=== PATIENT | female | born 1965 | race Caucasian/White ===

== ENCOUNTER → 2019-06-19 15:12 | Outpatient (CLI) | payer OTHER, SELFPAY ==
--- NOTE | 2019-06-19 | DI.MG.S_ITS ---
BILATERAL DIGITAL SCREENING MAMMOGRAM 3D/2D WITH CAD: 06/19/2019 CLINICAL: Routine screening. Comparison is made to exams dated: 05/13/2017 mammogram, 08/12/2015 mammogram, and 07/03/2014 mammogram - [facility]. The tissue of both breasts is heterogeneously dense. This may lower the sensitivity of mammography. Current study was also evaluated with a Computer Aided Detection (CAD) system. There is a mole marker on the left breast. No significant masses, calcifications, or other findings are seen in either breast. There has been no significant interval change. IMPRESSION: NEGATIVE There is no mammographic evidence of malignancy. A 1 year screening mammogram is recommended. This exam was interpreted at Station ID: [id number]. NOTE: For mammograms, a report in lay terms will be sent to the patient. Approximately 15% of breast malignancies will not be visualized mammographically. In the management of a palpable breast mass, a negative mammogram must not discourage biopsy of a clinically suspicious lesion. Electronically Signed By: David rowell/roberto:06/19/2019 18:49:54 letter sent: Normal Exam ACR BI-RADS Category 1: Negative 3341F
== END ==
PROVIDERS: PCP Family Medicine; Visit Provider Family Medicine
DX: Z12.31 Encounter for screening mammogram for malignant neoplasm of breast (principal)
CPT/HCPCS: 77063; 77067

== ENCOUNTER → 2019-07-04 11:43 | Outpatient (CLI) | payer OTHER, SELFPAY ==
[2019-07-04 12:33] LABS: Cholesterol 203 mg/dL (140-199); Glucose 96 mg/dL (70-100); HDL Cholesterol 49 mg/dL (40-60); LDL Cholesterol Calculated 142 mg/dL (<100); Triglycerides 58 mg/dL (35-150)
== END ==
PROVIDERS: PCP Family Medicine; Visit Provider Family Medicine
DX: Z13.220 Encounter for screening for lipoid disorders (principal); Z13.1 Encounter for screening for diabetes mellitus
CPT/HCPCS: 36415; 80061; 82947

== ENCOUNTER → 2022-04-28 11:05 | Outpatient (CLI) | payer OTHER, SELFPAY ==
[2022-04-28 14:53] LABS: Cholesterol 196 mg/dL (140-199); Glucose 103 mg/dL (70-100); HDL Cholesterol 56 mg/dL (40-60); LDL Cholesterol Calculated 128 mg/dL (<100); Triglycerides 60 mg/dL (35-150)
[2022-04-28 15:24] LABS: TSH w/ Reflex to FT4 2.74 uIU/mL (0.47-4.68)
== END ==
PROVIDERS: PCP Family Medicine; Referring Provider Family Medicine; Visit Provider Family Medicine
DX: E78.5 Hyperlipidemia, unspecified (principal); Z13.1 Encounter for screening for diabetes mellitus; Z13.29 Encounter for screening for other suspected endocrine disorder
CPT/HCPCS: 36415; 80061; 82947; 84443

== ENCOUNTER → 2022-05-25 09:33 | Outpatient (CLI) | payer OTHER, SELFPAY ==
--- NOTE | 2022-05-25 09:34 | DI.MG.S_ITS ---
BILATERAL DIGITAL SCREENING MAMMOGRAM 3D/2D WITH CAD: 05/25/2022 CLINICAL: Routine screening. Comparison is made to exams dated: 06/19/2019 mammogram, 05/13/2017 mammogram, and 08/12/2015 mammogram - [facility]. Both breasts are heterogeneously dense, which may obscure small masses (category c / 51-75% glandular tissue). Current study was also evaluated with a Computer Aided Detection (CAD) system. There is a mole marker on the left breast. No significant masses, calcifications, or other findings are seen in either breast. There has been no significant interval change. IMPRESSION: NEGATIVE There is no mammographic evidence of malignancy. A 1 year screening mammogram is recommended. Based on the Tyrer Cuzick model (a risk assessment model) the patient's lifetime risk is 11.9% and her 10 year risk is 4.2%. According to the ACR, ACS, and NCCN guidelines, an annual breast MRI exam along with mammogram is recommended if the patient's lifetime risk is 20% or greater. This exam was interpreted at Station ID: [id number]. NOTE: For mammograms, a report in lay terms will be sent to the patient. Approximately 15% of breast malignancies will not be visualized mammographically. In the management of a palpable breast mass, a negative mammogram must not discourage biopsy of a clinically suspicious lesion. Electronically Signed By: Hernan Coello M.D., jr/roberto:05/25/2022 09:49:22 letter sent: Normal Exam ACR BI-RADS Category 1: Negative 3341F
== END ==
PROVIDERS: PCP Family Medicine; Referring Provider Family Medicine; Visit Provider Family Medicine
DX: Z12.31 Encounter for screening mammogram for malignant neoplasm of breast (principal)
CPT/HCPCS: 77063; 77067

== ENCOUNTER → 2023-04-20 10:31 | Outpatient (CLI) | payer OTHER, SELFPAY ==
[2023-04-20 11:00] LABS: Add Manual Diff / Slide Review NO; Basophils Absolute Auto 100 /uL (0-100); Basophils Percent Auto 1.4 % (0-2); Eosinophils Absolute Auto 100 /uL (0-450); Eosinophils Percent Auto 1.4 % (2-4); Hematocrit 37.8 % (36-46); Hemoglobin 12.8 g/dL (12.0-16.0); Lymphocytes Absolute Auto 1200 /uL (1100-4500); Lymphocytes Percent Auto 25.9 % (25-40); Mean Corpuscular Hemoglobin 32.8 PG (26-34); Mean Corpuscular Volume 96.5 fL (80-100); Monocytes Absolute Auto 300 /uL (0-900); Monocytes Percent Auto 7.6 % (3-14); Neutrophils Absolute Auto 2800 /uL (1500-7000); Neutrophils Percent Auto 63.7 % (50-75); Platelet Count 183 X10^3/uL (150-400); Red Blood Cell Count 3.91 X10^6/uL (4.0-5.2); Red Cell Distribution Width 12.9 % (11.6-14.8); White Blood Cell Count 4.4 X10^3/uL (4.5-11.0)
[2023-04-20 11:22] LABS: Alanine Aminotransferase 14 IU/L (<35); Albumin 3.8 g/dL (3.5-5.0); Albumin Globulin Ratio 1.4 (1.0-2.8); Alkaline Phosphatase 56 U/L (38-126); Aspartate Aminotransferase 19 IU/L (14-36); BUN Creatinine Ratio 18.8 (6-22); Bilirubin Total 0.6 mg/dL (0.2-1.3); Blood Urea Nitrogen 15 mg/dL (7-17); Calcium 8.7 mg/dL (8.4-10.2); Carbon Dioxide 25 mmol/L (22-32); Chloride 105 mmol/L (98-107); Estimated Glomerular Filt Rate > 60 mL/min (>60); Globulin 2.7 g/dL (1.7-4.1); Glucose 105 mg/dL (70-100); HEMOLYSIS < 15 (0-50); Potassium 4.3 mmol/L (3.4-5.1); Sodium 137 mmol/L (137-145); Total Protein 6.5 g/dL (6.3-8.2)
[2023-04-20 12:00] LABS: Cholesterol 192 mg/dL (140-199); HDL Cholesterol 59 mg/dL (40-60); LDL Cholesterol Calculated 122 mg/dL (<100); Triglycerides 53 mg/dL (35-150)
[2023-04-21 04:24] LABS: x Labcorp Estim. Avg Glu (eAG) 111 mg/dL (.); x Labcorp Hemoglobin A1c 5.5 % (4.8-5.6)
== END ==
PROVIDERS: PCP Family Medicine; Referring Provider Family Medicine; Visit Provider Family Medicine
DX: Z13.9 Encounter for screening, unspecified (principal); Z13.220 Encounter for screening for lipoid disorders
CPT/HCPCS: 36415; 80053; 80061; 83036; 85025

== ENCOUNTER 2023-08-17 07:11 | Day surgery (SDC) | payer OTHER, SELFPAY ==
--- NOTE | 2023-08-17 | PATH_ITS ---
[facility] Accession Number: [id number] No. of containers..02 Tissue . 01 Material submitted: . PART A: rectum - RECTAL POLYP PART B: colon - DESCENDING COLON POLYP X3 . 01 Diagnosis: A. Rectum, Polyp: Tubulovillous adenoma. No evidence of malignancy or high-grade dysplasia. . B. Descending Colon, Polyp x3: Multiple fragments of tubular adenoma. [facility] 08/26/2023 1339 Local . 01 Electronically signed: . Anna Oneill MD, Pathologist NPI- [id number] . 01 Gross description: . Part A: RECTAL POLYP: Received in formalin is multiple fragment(s) of fallon, soft tissue measuring 3.0 x 2.0 x 0.4 cm in aggregate submitted entirely in 1 cassette(s) Part B: DESCENDING COLON POLYP X3: Received in formalin is multiple fragment(s) of fallon, soft tissue measuring 1.5 x 0.7 x 0.3 cm in aggregate submitted entirely in 1 cassette(s) /AA 08/18/2023 0446 Local . 01 Pathologist provided ICD-10: D12.8, D12.4 . 01 CPT . 392041, 726861 Specimen Comment: A courtesy copy of this report has been sent to [phone] Performed at: 01 [facility] [address] [place] [address], [place], [place] [id number] MD Adan Baig MD Phone: [phone]
[2023-08-17] MEDS: LACTATED RINGERS 1,000 ML 42 ML IV (07:27)
[2023-08-17 07:29] VITALS: BP 140/76; PULSE 75; RESP 16; TEMP 36.1; O2SAT 99; BMI 32.9
--- NOTE | 2023-08-17 08:09 | P.HP_ITS ---
History of Present Illness History of Present Illness Date Patient Seen: 08/17/23 Time Patient Seen: 08:09 Chief complaint: Screening Colonoscopy Narrative: 58-year-old woman here for routine screening colonoscopy. No previous colonoscopy. No abdominal concerns including rectum, unintentional weight loss, abdominal pain. No family history of intestinal malignancy. [facility] Surgical History Status post surgery (12/20/17) Social History household members: spouse Smoking Status: Never smoker alcohol intake: current Meds Home Medications and Allergies Home Medications Medication Instructions Recorded Confirmed Type progesterone micronized 100 mg 100 mg PO DAILY #90 caps 04/19/23 08/17/23 Rx capsule estradiol 0.1 mg/24 hr semiweekly 1 patch topical 2XW #24 ea 06/14/23 08/17/23 Rx transdermal patch Allergies Allergy/AdvReac Type Severity Reaction Status Date / Time No Known Allergies Allergy Uncoded 08/17/23 07:27 Exam Vital Signs (past 8 hours): - 08/17/23 07:29 Temperature 96.9 F L Pulse Rate 75 Respiratory Rate 16 Blood Pressure 140/76 Pulse Oximetry 99 Oxygen Delivery Method Room Air Oxygen Delivery Method Room Air Narrative Exam Narrative: General adult woman alert oriented no acute distress Chest nonlabored respiration Extremities warm well perfused Assessment & Plan Assessment & Plan narrative: The patient requires colorectal screening and colonoscopy is recommended. Technical details were discussed. Risks, benefits, alternatives explained. Risks including but not limited to myocardial infarction, aspiration, bleeding, pain, missed lesion, incomplete examination, need for further radiographic studies, colonic perforation, and need for major abdominal surgery were discussed. All questions were answered to their satisfaction, and they are in agreement with this plan.
[2023-08-17 08:48] VITALS: BP 127/71; PULSE 77; RESP 21; TEMP 36.1; O2SAT 98
--- NOTE | 2023-08-17 08:51 | P.OP.COLON_ITS ---
Operative Date/Time/Diagnoses Date of procedure: 08/17/23 Time of procedure: 08:51 Pre-op diagnosis: Colorectal screening Post-op diagnosis: other (Colonic polyp x 4) Procedure & Clinicians Study performed: Colonoscopy polypectomy Same procedure as scheduled: Yes Indications: Colorectal screening Surgeon: Amor Gomez Procedure Notes Procedure in detail: The history and physical was performed/updated and the patient is ASA class is 2. The procedure was discussed in detail with the patient. Potential risks complications including infection, bleeding, missed diagnosis, perforation, need for surgery, and were explained. Their questions were answered and informed consent was obtained. Patient was brought to the procedure room and placed standard monitoring equipment. The patient's vital signs were monitored continuously throughout the entire procedure. Prior to starting time-out was performed. The patient was placed in the left lateral recumbent position. Procedural sedation was administered by anesthesia. Examination began with a thorough inspection of the perianal area there was no evidence of fissures, fistulae, external hemorrhoids or cutaneous malignancy. The colonoscopy scope was then placed into the anal canal and was advanced to the cecum, which was identified by the ileocecal valve, the appendiceal orifice and the confluence of the taenia. The scope was then slowly withdrawn examining colon thoroughly in all directions, irrigating it of any residual stool. The scope was retroflexed within the rectum The patient tolerated the procedure well. They will be discharged once criteria are met. The prep was of good/excellent quality. The withdrawl time was 15 minutes. FINDINGS * Rectal polyp at approximately 10 cm from the anal verge just beyond the tip of index finger. Polyp is concerning in appearance for adenocarcinoma approximately 2 cm in size sessile. Removed piecemeal with hot snare tattoo placed adjacent to polyp. The entirety of the polyp could not be removed given its large and sessile nature. * Descending colon total of 3 polyps ranging in size between 3-8 mm removed with a combination of cold snare and biopsy forceps. Specimen(s): other (Rectal polyp, descending colonic polyps) Impression: Colonic polyps x4 Post-procedure Plan for aftercare: Await pathology findings will likely need a low anterior versus transanal Disposition: same day surgery
[2023-08-17 08:53] VITALS: BP 120/75; PULSE 73; RESP 23; O2SAT 100
[2023-08-17 08:57] VITALS: BP 131/82; PULSE 70; RESP 23; O2SAT 100
[2023-08-17 09:02] VITALS: BP 140/77; PULSE 69; RESP 22; TEMP 36.2; O2SAT 100
== END 2023-08-17 09:12 | disposition home or self-care (01) ==
PROVIDERS: PCP Family Medicine; Referring Provider Surgery; Visit Provider Surgery
PROC: 0DJD8ZZ Inspection of Lower Intestinal Tract, Via Natural or Artificial Opening Endoscopic (ICD-10-PCS; CPT 45378; principal; 2023-08-17 08:15)
DX: Z12.11 Encounter for screening for malignant neoplasm of colon (principal); D12.8 Benign neoplasm of rectum; D12.4 Benign neoplasm of descending colon
CPT/HCPCS: 45385; 45380; 45381; J2704

== ENCOUNTER 2024-02-29 08:33 | Day surgery (SDC) | payer OTHER, SELFPAY ==
--- NOTE | 2024-02-29 | PATH_ITS ---
[facility] Accession Number: [id number] No. of containers..01 Tissue . 01 Material submitted: . rectum - RECTAL POLYP . 01 Diagnosis: RECTAL POLYP: Tubulovillous adenoma. No high-grade dysplasia or malignancy identified. [facility] 03/02/2024 1258 Local . 01 Electronically signed: . Adan Baig MD, Pathologist NPI- [id number] . 01 Gross description: . Received in formalin with two patient identifiers and rectal polyp, are multiple fallon soft tissue fragments, the largest measuring 1.3 x 0.8 x 0.9 cm. The four largest fragments are inked, sectioned, and submitted in A1-A3. The remaining fragments were filtered and submitted in A4. ([id number]) /MRV 03/02/2024 1258 Local . 01 Pathologist provided ICD-10: D12.8 . 01 CPT . 264397 Specimen Comment: A courtesy copy of this report has been sent to [phone] Performed at: 01 [address] [address], [place], [place] [id number] MD Adan Baig MD Phone: [phone]
[2024-02-29] MEDS: LACTATED RINGERS 1,000 ML 42 ML IV (08:58)
[2024-02-29 08:59] VITALS: BP 142/79; PULSE 79; RESP 14; TEMP 36.6; O2SAT 99
--- NOTE | 2024-02-29 09:13 | PM.HP.1 ---
History of Present Illness History of Present Illness Date Patient Seen: 02/29/24 Time Patient Seen: 09:13 Chief complaint: Dx Sigmoidoscopy Narrative: 58-year-old woman with a history of large rectal polyp here for sigmoidoscopy today. August 2024 she underwent a colonoscopy which demonstrated at 2 cm polyp within the rectum 10 cm from the verge which was removed piecemeal. She is here today to ensure lesion was resected in its entirety. [facility] Surgical History Hx of section History of surgery on right wrist Status post surgery (12/20/17) Social History household members: spouse Smoking Status: Never smoker alcohol intake: current Meds Home Medications and Allergies Home Medications Medication Instructions Recorded Confirmed Type estradiol 0.1 mg/24 hr semiweekly 1 patch topical 2XW 02/29/24 02/29/24 History transdermal patch progesterone micronized 100 mg 100 mg PO DAILY 02/29/24 02/29/24 History capsule Allergies Allergy/AdvReac Type Severity Reaction Status Date / Time No Known Allergies Allergy Uncoded 02/29/24 08:52 Exam Vital Signs (past 8 hours): - 02/29/24 08:59 Temperature 97.9 F Pulse Rate 79 Respiratory Rate 14 Blood Pressure 142/79 H Pulse Oximetry 99 Oxygen Delivery Method Room Air Oxygen Delivery Method Room Air Narrative Exam Narrative: General adult woman alert oriented no acute distress Chest nonlabored respiration Extremities warm well perfused Assessment & Plan Assessment and plan (1) History of rectal polypectomy: Status: Acute Assessment & Plan narrative: 58-year-old woman history of 2 cm rectal polyp here for sigmoidoscopy/surveillance. Technical details were discussed. Risks, benefits, alternatives explained. Risks including but not limited to myocardial infarction, aspiration, bleeding, pain, missed lesion, incomplete examination, need for further radiographic studies, intestinal injury, and need for major abdominal surgery were discussed. All questions were answered to their satisfaction, and they are in agreement with this plan.
[2024-02-29 09:47] VITALS: BP 140/81; PULSE 81; RESP 14; TEMP 36.3; O2SAT 99
[2024-02-29 09:54] VITALS: BP 135/72; PULSE 76; RESP 25; TEMP 36.3; O2SAT 100
--- NOTE | 2024-02-29 09:54 | PM.OP.COLON ---
Operative Date/Time/Diagnoses Date of procedure: 02/29/24 Time of procedure: 09:54 Pre-op diagnosis: Rectal polyp Post-op diagnosis: same Procedure & Clinicians Study performed: Sigmoidoscopy Same procedure as scheduled: Yes Indications: 58-year-old woman who had a 2 cm rectal polyp partially resected piecemeal 6 months ago. She is here for reassessment today. Procedure Notes Procedure in detail: The history and physical was performed/updated and the patient is ASA class is 2. The procedure was discussed in detail with the patient. Potential risks complications including infection, bleeding, missed diagnosis, perforation, need for surgery, and were explained. Their questions were answered and informed consent was obtained. Patient was brought to the procedure room and placed standard monitoring equipment. The patient's vital signs were monitored continuously throughout the entire procedure. Prior to starting time-out was performed. The patient was placed in the left lateral recumbent position. Procedural sedation was administered by anesthesia. Examination began with a thorough inspection of the perianal area there was no evidence of fissures, fistulae, external hemorrhoids or cutaneous malignancy. The colonoscopy scope was then placed into the anal canal and was advanced advanced forward. The previously seen rectal polyp has a very broad flat base. Lifted the polyp as best we could with methylene blue. Once lifted we removed as much of it as we could safely piecemeal using hot snare. However there remains significant amount of polyp base which I can not adequately resect using the colonoscope. A referral to colorectal consultation for transanal resection will be placed. Specimen(s): other (Rectal polyp) Impression: Residual rectal polyp Post-procedure Plan for aftercare: Referral to Colorectal surgery for transanal resection Disposition: same day surgery
[2024-02-29 09:57] VITALS: BP 150/83; PULSE 74; RESP 22; TEMP 36.3; O2SAT 99
[2024-02-29 10:14] VITALS: BP 141/87; PULSE 77; RESP 15; TEMP 36.4; O2SAT 100
== END 2024-02-29 10:37 | disposition home or self-care (01) ==
PROVIDERS: PCP Family Medicine; Referring Provider Surgery; Visit Provider Surgery
PROC: 0DJD8ZZ Inspection of Lower Intestinal Tract, Via Natural or Artificial Opening Endoscopic (ICD-10-PCS; CPT 45378; principal; 2024-02-29 09:15)
DX: D12.8 Benign neoplasm of rectum (principal)
CPT/HCPCS: 45338; 45335; J2704

== ENCOUNTER → 2024-05-26 10:40 | Outpatient (CLI) | payer OTHER, SELFPAY ==
[2024-05-26 12:37] LABS: Alanine Aminotransferase 11 IU/L (<35); Albumin 4.2 g/dL (3.5-5.0); Albumin Globulin Ratio 1.4 (1.0-2.8); Alkaline Phosphatase 53 U/L (38-126); Aspartate Aminotransferase 24 IU/L (14-36); BUN Creatinine Ratio 17.2 (6-22); Blood Urea Nitrogen 17 mg/dL (7-17); Calcium 8.8 mg/dL (8.4-10.2); Carbon Dioxide 23 mmol/L (22-32); Chloride 105 mmol/L (98-107); Cholesterol 224 mg/dL (140-199); Estimated Glomerular Filt Rate > 60 mL/min (>60); Globulin 2.9 g/dL (1.7-4.1); Glucose 103 mg/dL (70-100); HDL Cholesterol 66 mg/dL (40-60); HEMOLYSIS < 15 (0-50); LDL Cholesterol Calculated 143 mg/dL (<100); Potassium 4.1 mmol/L (3.4-5.1); Sodium 137 mmol/L (137-145); Total Protein 7.1 g/dL (6.3-8.2); Triglycerides 76 mg/dL (35-150)
[2024-05-26 12:54] LABS: Hemoglobin A1C% w Est Avg Glu 5.1 % (4.0-6.0)
== END ==
PROVIDERS: PCP Family Medicine; Referring Provider Family Medicine; Visit Provider Family Medicine
DX: R73.9 Hyperglycemia, unspecified (principal); E78.5 Hyperlipidemia, unspecified
CPT/HCPCS: 36415; 80053; 80061; 83036

== ENCOUNTER → 2024-09-05 12:41 | Outpatient (CLI) | payer OTHER, SELFPAY ==
--- NOTE | 2024-09-05 12:41 | DI.MG.S_ITS ---
BILATERAL DIGITAL SCREENING MAMMOGRAM 3D/2D WITH CAD: 09/05/2024 CLINICAL: Routine screening. Comparison is made to exams dated: 05/25/2022 mammogram, 06/19/2019 mammogram, and 05/13/2017 mammogram - [facility]. The breasts are heterogeneously dense, which may obscure small masses (category c / 51-75% glandular tissue). Current study was also evaluated with a Computer Aided Detection (CAD) system. There is a mole marker on the left breast. No significant masses, calcifications, or other findings are seen in either breast. There has been no significant interval change. IMPRESSION: NEGATIVE There is no mammographic evidence of malignancy. A 1 year screening mammogram is recommended. Based on the Tyrer Cuzick model (a risk assessment model) the patient's lifetime risk is 11.3% and her 10 year risk is 4.6%. According to the ACR, ACS, and NCCN guidelines, an annual breast MRI exam along with mammogram is recommended if the patient's lifetime risk is 20% or greater. This exam was interpreted at Station ID: [id number]. NOTE: For mammograms, a report in lay terms will be sent to the patient. Approximately 15% of breast malignancies will not be visualized mammographically. In the management of a palpable breast mass, a negative mammogram must not discourage biopsy of a clinically suspicious lesion. Electronically Signed By: Vince black/roberto:09/05/2024 20:19:24 letter sent: Normal Exam ACR BI-RADS Category 1: Negative
== END ==
PROVIDERS: PCP Family Medicine; Referring Provider Family Medicine; Visit Provider Family Medicine
DX: Z12.31 Encounter for screening mammogram for malignant neoplasm of breast (principal); R92.333 Mammographic heterogeneous density, bilateral breasts
CPT/HCPCS: 77063; 77067

== ENCOUNTER → 2025-07-26 12:03 | Outpatient (CLI) | payer OTHER, SELFPAY ==
[2025-07-26 12:33] LABS: Add Manual Diff / Slide Review NO; Hematocrit 38.9 % (36-46); Hemoglobin 13.3 g/dL (12.0-16.0); Lymphocytes Absolute Auto 1300 /uL (1100-4500); Mean Corpuscular HGB Conc 34.1 % (30-36); Mean Corpuscular Hemoglobin 33.2 PG (26-34); Mean Corpuscular Volume 97.5 fL (80-100); Platelet Count 196 X10^3/uL (150-400)
[2025-07-26 13:08] LABS: Alanine Aminotransferase 13 IU/L (<35); Albumin 4.3 g/dL (3.5-5.0); Albumin Globulin Ratio 1.5 (1.0-2.8); Alkaline Phosphatase 50 U/L (38-126); Blood Urea Nitrogen 15 mg/dL (7-17); Calcium 9.2 mg/dL (8.4-10.2); Carbon Dioxide 25 mmol/L (22-32); Chloride 104 mmol/L (98-107); Cholesterol 216 mg/dL (140-199); Estimated Glomerular Filt Rate > 60 mL/min (>60); Globulin 2.8 g/dL (1.7-4.1); Glucose 100 mg/dL (70-99); HDL Cholesterol 77 mg/dL (40-60); HEMOLYSIS 16 (0-50); Potassium 4.4 mmol/L (3.4-5.1); Sodium 138 mmol/L (137-145); Total Protein 7.1 g/dL (6.3-8.2); Triglycerides 68 mg/dL (35-150)
== END ==
PROVIDERS: PCP Family Medicine; Referring Provider Family Medicine; Visit Provider Family Medicine
DX: Z13.228 Encounter for screening for other metabolic disorders (principal); E78.5 Hyperlipidemia, unspecified; D64.9 Anemia, unspecified
CPT/HCPCS: 36415; 80053; 80061; 85025

== ENCOUNTER → 2025-08-06 10:23 | Outpatient (CLI) | payer OTHER, SELFPAY ==
[2025-08-06 11:48] LABS: Thyroid Stimulating Hormone 3.29 uIU/mL (0.47-4.68)
[2025-08-06 12:03] LABS: Follicle Stimulating Hormone 74.6 mIU/mL
[2025-08-06 12:19] LABS: Estradiol, Total 43.7 pg/mL
== END ==
PROVIDERS: PCP Family Medicine; Referring Provider Family Medicine; Visit Provider Family Medicine
DX: N93.9 Abnormal uterine and vaginal bleeding, unspecified (principal)
CPT/HCPCS: 36415; 82670; 83001; 83002; 84144; 84443

== ENCOUNTER → 2025-08-08 15:04 | Outpatient (CLI) | payer OTHER, SELFPAY ==
--- NOTE | 2025-08-08 15:05 | DI.US.S_ITS ---
PROCEDURE: US PELVIC COMPLETE INDICATIONS: abnormal uterine bleeding TECHNIQUE: Real-time scanning was performed of the pelvic organs, with image documentation. Additional endovaginal scanning was necessary due to incomplete visualization of the adnexal and endometrial structures by transabdominal scanning. COMPARISON: [facility], , PELVIC COMPLETE, 12/02/2017, 8:40. FINDINGS: Uterus: Uterus is retroverted and normal in size at 9.3 x 5.1 x 7.1 cm. The myometrium is heterogeneous. The endometrium measures 3.9 mm combined thickness. Anterior intramural fibroid measuring 13 mm. Ovaries: The right ovary is not seen. The left ovary is surgically absent. Other: No pathologic free abdominal or pelvic fluid. IMPRESSION: Endometrium is normal in thickness measuring 4 mm. Intramural fibroid measuring 13 mm. The right ovary is not seen. The left ovary is surgically absent. We strive to produce accurate, complete, and clear reports of imaging services. To assist us in improving patient care, this report was composed using standard report templates and voice recognition software. Therefore, it may contain abnormal punctuation, insertions and/or omissions. Occasional wrong-word or sound-alike substitutions may occur. Though we review the report and make efforts to correct it, we do recommend that the report be read carefully in proper context to recognize any text inaccuracies. Dictated by: Kyle Phillips M.D. on 08/08/2025 at 16:18 Approved by: Kyle Phillips M.D. on 08/08/2025 at 16:23
== END ==
LOC: US 15:05
PROVIDERS: PCP Family Medicine; Referring Provider Family Medicine; Visit Provider Family Medicine
DX: N93.9 Abnormal uterine and vaginal bleeding, unspecified (principal); D25.1 Intramural leiomyoma of uterus; Z90.721 Acquired absence of ovaries, unilateral
CPT/HCPCS: 76830; 76856